=== PATIENT | female | born 1940 | race Caucasian/White ===

== ENCOUNTER 2017-01-03 06:18 | Day surgery (SDC) | payer MEDICARE, OTHER ==
[2017-01-03] VITALS (8 sets, daily range): BP systolic 131–174; BP diastolic 63–81
[~2017-01-03] VITALS: Ht 157.5 cm; Wt 74.8 kg
[~2017-01-03 06:18] MED LIST: cefOXitin 1gm/D5W 55ml IVPB ONE
[2017-01-03] MEDS ORDERED: EDARBYCLOR 40-1 EACH ORAL (06:49)
[2017-01-03] MEDS ORDERED: SIMVASTATIN10 MG ORAL (07:15)
[2017-01-03] MEDS ORDERED: CLOPIDOGREL75 MG ORAL (07:15)
[2017-01-03] MEDS ORDERED: LEVOTHYROXINE75 MCG ORAL (07:15)
[2017-01-03] MEDS ORDERED: cefOXitin 1gm Inj ONE (07:28)
[2017-01-03] MEDS ORDERED: Lidocaine 1% MPF 10mg/ml 5ml ONE (07:30)
[2017-01-03] MEDS ORDERED: fentaNYL 100 mcg/2 mL IV ONE (07:30)
[2017-01-03] MEDS ORDERED: Metoclopramide 10mg/2ml Inj ONE (07:30)
[2017-01-03] MEDS ORDERED: Propofol 200mg/20ml IV ONE (07:30)
[2017-01-03] MEDS ORDERED: LR 1000ml ONE (07:30)
--- NOTE | 2017-01-03 07:39 | Anethesia Preoperative Eval ---
Anesthesia Pre-op PMH/ROS General Date of Evaluation: Jan 03, 2017 Time of Evaluation: 07:36 Anesthesiologist: yennifer ASA Score: ASA 2 Mallampati Score Class I : Soft palate, uvula, fauces, pillars visible Class II: Soft palate, uvula, fauces visible Class III: Soft palate, base of uvula visible Class IV: Only hard plate visible Mallampati Classification: Class II Surgeon: susy Diagnosis: endometrial polyp Surgical Procedure: D&C; hysteroscopy Anesthesia History: none Family History: no anesthesia problems Allergies: Coded Allergies: No Known Allergies (Unverified , 01/03/17) Medications: see eMAR Past Medical History Cardiovascular: Reports: HTN Pulmonary: Denies: asthma, COPD, [place], other Gastrointestinal/Genitourinary: Denies: GERD, CRI, ESRD, other Neurologic/Psychiatric: Reports: other - cartoid stent 15 years ago Endocrine: Reports: hypothyroidism HEENT: Denies: cataract (L), cataract (R), glaucoma, [place] (L), [place] (R), other Hematology/Immune: Reports: anemia Musculoskeletal/Integumentary: Reports: OA Other: obesity Anesthesia Pre-op Phys. Exam Physician Exam Last Vital Signs Date Time Temp Pulse Resp B/P (MAP) Pulse Ox O2 Delivery O2 Flow Rate FiO2 01/03/17 07:09 97.7 64 18 131/70 97 Room Air Constitutional: NAD Neurologic: CN 2-12 intact Cardiovascular: RRR Respiratory: CTA Gastrointestinal: S/NT/ND Airway Exam Mallampati Classification 3 Mallampati Score: Class II MO: full Neck: thick ROM: full Teeth: missing Dentures: lower Anesthesia Pre-op A/P Labs wnl Studies Pre-op Studies: EKG - SR Risk Assessment & Plan Assessment: no asprin of plavix for 7 days Plan: general Status Change Before Surgery: No Pre-Antibiotics Drug: mefoxitin Given Within 1 Hr of Incision: Yes Time Given: 07:40 MARICEL DALEY CRNA Jan 03, 2017 07:39
[2017-01-03] MEDS ORDERED: Metoclopramide 10mg/2ml Inj IVP PRN (07:45)
[2017-01-03] MEDS ORDERED: fentaNYL 100 mcg/2 mL IV PRN (07:45)
--- NOTE | 2017-01-03 07:51 | Pre-Procedure Note/Attestation ---
Pre-Procedure Note/Attestation Complete Prior to Procedure Planned Procedure: not applicable Procedure Narrative: Hysteroscopy, dilation and curettage Indications for Procedure Pre-Operative Diagnosis: endometrial hyperplasia Attestation I attest that I discussed the nature of the procedure; its benefits; risks and complications; and alternatives (and the risks and benefits of such alternatives ), prior to the procedure, with the patient (or the patient's legal retail sales representative). I attest that, if there was a reasonable possibility of needing a blood transfusion, the patient (or the patient's legal retail sales representative) was given the [facility] standardized written summary, pursuant to the [place] Blood Safety Act ([place] Health and Safety Code # 1645, as amended). I attest that I re-evaluated the patient just prior to the surgery and that there has been no change in the patient's H&P, except as documented below: REFUGIO GARCIA Jan 03, 2017 07:51
[2017-01-03] MEDS ORDERED: DiphenhydrAMINE 50mg/ml Inj IVP PRN (08:00)
[2017-01-03] MEDS ORDERED: HYDROmorphone 1mg/ml Carpuject SUBQ PRN (08:00)
[2017-01-03] MEDS ORDERED: Tylenol #3 tab (300mg/30mg) ORAL PRN (08:00)
[2017-01-03] MEDS ORDERED: D5 1/2NS 1,000 ML IV SCH (08:00)
[2017-01-03] MEDS ORDERED: Norco 5mg/325mg tab ORAL PRN (08:00)
--- NOTE | 2017-01-03 08:43 | Immediate Post-Op Evaluation ---
Immediate Post-Op Evalulation Immediate Post-Op Evalulation Procedure: hysteroscopy and d and c Date of Evaluation: Jan 03, 2017 Time of Evaluation: 08:35 IV Fluids: 600 Blood Pressure Systolic: 159 Blood Pressure Diastolic: 60 Pulse Rate: 50 Respiratory Rate: 14 O2 Sat by Pulse Oximetry: 100 Temperature (Fahrenheit): 97.5 Nausea: No Vomiting: No Complications none Patient Status: awake, reacts, patent Hydration Status: adequate Drug: cefoxitin Given Within 1 Hr of Incision: Yes Time Given: 07:40 MARICEL DALEY CRNA Jan 03, 2017 08:43
[2017-01-04 07:12] VITALS: BP 139/67
--- NOTE | 2017-01-04 07:12 | 48 Hour Post Anesthesia Eval ---
Post Anesthesia Evaluation Procedure: hysteroscopy and d and c Date of Evaluation: Jan 04, 2017 Time of Evaluation: 07:12 Blood Pressure Systolic: 139 0: 67 Pulse Rate: 59 Respiratory Rate: 14 O2 Sat by Pulse Oximetry: 100 Airway: patent Nausea: No Vomiting: No If pain is > 6 Comment: 0 Hydration Status: adequate Cardiopulmonary Status: stable Mental Status/LOC: patient returned to baseline Follow-up Care/Observations: per [employer] Post-Anesthesia Complications: none Follow-up care needed: N/A MARICEL DALEY CRNA Jan 04, 2017 07:12
--- NOTE | 2017-01-04 08:00 | Operative Note - Dictated ---
DATE OF OPERATION: 01/03/2017 PREOPERATIVE DIAGNOSES: 1. Postmenopausal bleeding. 2. Endometrial hyperplasia. POSTOPERATIVE DIAGNOSES: 1. Postmenopausal bleeding. 2. Atrophic endometrium. ANESTHESIA: General endotracheal. ANESTHESIOLOGIST: Rober Cardenas SURGEON: Carmelita Quevedo M.D. STORYBOARD ARTIST: None. ESTIMATED BLOOD LOSS: Minimal. PROCEDURE: 1. Dilation and curettage. 2. Hysteroscopy. Procedure in Detail: After ensuring informed consent, the patient was taken to the operating room where general anesthesia was induced. The patient was sterilely prepped and draped. A weighted speculum was placed in the vagina. Cervix was dilated to an 8 Hegar dilator. Uterus was distended with normal saline. Atrophic endometrium was observed. Both [place] were visualized. Fractional curettage was performed. Specimens were sent to pathology. At the end of the procedure, all instrument and lap counts were correct x2. The patient was taken to the recovery area extubated and in stable condition. Carmelita Quevedo M.D. DR: ALLYSON JOB#: [id number] CC: [id number]
== END 2017-01-03 10:35 | disposition home or self-care (01) ==
LOC: SUR 06:18
DX: N95.0 Postmenopausal bleeding (principal); N85.8 Other specified noninflammatory disorders of uterus; I10 Essential (primary) hypertension; M19.90 Unspecified osteoarthritis, unspecified site; Z90.49 Acquired absence of other specified parts of digestive tract
CPT/HCPCS: 58558; J0694; J2405; J2704; J2765; J3010; J7120; 94003; 94150